=== PATIENT | female | born 1985 | race Hispanic/Latino ===

== ENCOUNTER 2018-07-31 10:23 | Outpatient (CLI) | payer OTHER ==
--- NOTE | 2018-07-31 11:54 | RAD ---
FXR Ankle Lt 3 View STANDARD History: [Sprain of left ankle] Comparison: None Findings: There is subtle subcortical lucency of the medial talar dome with small osteophyte formatio n of the medial talar dome and of the tibial component of the medial shoulder of the ankle mortise. N o acute fractures appreciated. No significant ankle joint effusion. Small plantar calcaneal spur. Impression: 1. Mild medial malleolar soft tissue swelling suggesting an ankle sprain. 2. Concern for a possible old osteochondral lesion of the medial talar dome with early degenerative c hanges of the medial shoulder of the ankle mortise.
== END 2018-07-31 10:24 | disposition home or self-care (01) ==
LOC: BICRAD 10:23
PROVIDERS: ATTEND Nurse Practitioner Family
DX: S93.402A Sprain of unspecified ligament of left ankle, initial encounter (principal); M79.89 Other specified soft tissue disorders